=== PATIENT | male | born 1950 | race Caucasian/White ===

== ENCOUNTER 2019-10-18 11:26 | Inpatient (IN) | payer OTHER, MEDICARE ==
[~2019-10-18] VITALS: Ht 180.3 cm; Wt 100.5 kg
[~2019-10-18 11:26] MED LIST: ALBU3IS INH; ASPI325EC PO; Anti-Diarrheal2 MG PO; CARV3.125 PO; CREON DR 12,001 EACH PO; DORZOPSO; FURO20 PO; Flonase 0.05% N16 GM; GABA300 PO; GLIP5 PO; INSULANPEN SC; LATA.005SO BOTHEYES; LISI5 PO; LO-DOSE ASPIRIN81 MG PO; MECL25 PO; METF500 PO; METO25ER PO; METO5A PO; Nitroglycerin0.4 MG SL; OXYC10ER; PRED1SU BOTHEYES; SERT50 PO; SIMBRINZA 1%-0.28 ML BOTHEYES; TIMO.5OPSO BOTHEYES; Vitamin D2000 UNIT PO; ZYRTEC10 M2 PO
[2019-10-18] MEDS ORDERED: BISA5EC (11:44)
[2019-10-18] MEDS ORDERED: ENOX30I SC ×2 (11:46→16:01)
[2019-10-18] MEDS ORDERED: [UNRECOGNIZED DRUG - OTHER] (11:46)
[2019-10-18] MEDS ORDERED: DEXTROSE 50% (11:46)
[2019-10-18] MEDS ORDERED: [UNRECOGNIZED DRUG - OTHER] (11:52)
[2019-10-18] MEDS ORDERED: LACT PO ×2 (11:52→16:04)
[2019-10-18] MEDS ORDERED: MICO100S VAG (11:53)
[2019-10-18] MEDS ORDERED: ACET325 PO (12:41)
[2019-10-18] MEDS ORDERED: Eq Liquid Anta769 ML PO (12:42)
[2019-10-18] MEDS ORDERED: BACLOFEN5 MG PO (12:43)
[2019-10-18] MEDS ORDERED: BRIMONIDINE TART5 ML BOTHEYES (12:45)
[2019-10-18] MEDS ORDERED: Calcium Acetat667 MG PO (12:47)
[2019-10-18] MEDS ORDERED: CARV3.125 PO (12:47)
[2019-10-18] MEDS ORDERED: DOCU100 PO (12:50)
[2019-10-18] MEDS ORDERED: FINA5 PO (12:52)
[2019-10-18] MEDS ORDERED: GABA300 PO (12:53)
[2019-10-18] MEDS ORDERED: BASAGLAR K100 UNIT/1 SC (12:55)
[2019-10-18] MEDS ORDERED: Anti-Diarrheal2 MG PO (12:56)
[2019-10-18] MEDS ORDERED: MELA3 PO (12:57)
[2019-10-18] MEDS ORDERED: ONDA4 PO (12:59)
[2019-10-18] MEDS ORDERED: BETIMOL5 ML BOTHEYES (13:01)
[2019-10-18] MEDS ORDERED: TORSE20 PO (13:01)
[2019-10-18] MEDS ORDERED: MIRALAX17 GM PO (13:05)
[2019-10-18] MEDS ORDERED: SENNA LAXATIVE8.6 MG PO (13:06)
[2019-10-18 13:08] LABS: U Cannabinoids Screen DETECTED
[2019-10-18 13:09] LABS: U Amphetamine Screen Not Detected; U Barbituate Screen Not Detected; U Benzodiazapine Screen Not Detected; U Buprenorphine Screen Not Detected; U Cocaine Screen Not Detected; U Methadone Screen Not Detected; U Methamphetamine Screen Not Detected; U Opiates Screen Not Detected; U Oxycodone Screen Not Detected; U Propoxyphene Screen Not Detected
[2019-10-18 13:37] LABS: PCO2 Arterial 43.2 mmHg (35-45); PO2 Arterial 70.4 mmHg (80-100); pH Blood Arterial 7.39 (7.35-7.45)
--- NOTE | 2019-10-18 14:50 | NUR ---
ASSUMED CARE: PT ARRIVED FROM ED TO PCU 8. HE IS LETHARGIC, MUMBLES AND GROANS. KNOWS NAME AND DATE OF BUT NOT ORIENTED TO SURROUNDINGS. TAB ALARM ON DUE TO PT CONTINUING TO THROW LEGS OVER THE SIDE OF BED. PT UNABLE TO PROVIDE INFORMATION, TOO LETHARGIC AND CONFUSED TO CARRY ON CONVERSATION.
[2019-10-18] MEDS ORDERED: ANTI-FUNGAL POW71 GM TOP (16:08)
[2019-10-18] MEDS ORDERED: BISA5EC PO (16:11)
--- NOTE | 2019-10-18 18:49 | NUR ---
SHIFT SUMMARY: PT CONTINUES TO BE CONFUSED AND ATTEMPTING TO DISROBE. CAMERA IN PLACE TO ASSIST WITH MONITORING CONFUSED PT. CAMERA CALLED AND NURSE ENTERED TO FIND PT ATTEMPTING TO PULL OFF TELE AND GOWN. THEN HE COMPLAINED OF NEEDING TO GO TO THE BATHROOM. BLADDER SCAN REVEALED OVER 900. CALL TO DR MULLER FOR KILLIAN ORDERS WELL RESTRAINTS DUE TO CONFUSION AND ATTEMPTING TO PULL AT LINES NEEDED FOR TREATMENT. PT'S GROIN NOTED TO BE VERY RED AND PAINFUL. NYSTATIN POWDER APPLIED. BILATERAL WRIST RESTRAINTS IN PLACE AT THIS TIME. D5 NS IN PLACE DUE TO LOW CBGS AND TOO CONFUSED TO EAT. PT'S FRIEND NORM CALLED TO CHECK IN AND WAS GIVEN UPDATE ABLE.
--- NOTE | 2019-10-18 19:25 | NUR ---
ASSUMED CARE PATIENT AWAKE, LYING IN BED, MUMBLING INCOHERENTLY WITH FEW WORDS AUDIBLE, PULLING LIGHTLY AT SOFT WRIST RESTRAINTS. PERFUSION TO FINGERS IS INTACT, CAP REFILL <3 SEC, NO REDNESS NO BLEEDING AT RESTRAINT SITES. ALL VSS, O2 SATURATION AT 94% ON ROOM AIR. PATIENT ORIENTED MAINLY ONLY TO SELF, AND BRIEFLY TO LOCATION AFTER RE-ORIENTATION, BUT DOES NOT FOCUS VISION ON OBJECTS. PATIENT SAYS "OW" AND IS ABLE TO COMMUNICATE THAT HE FEELS PAIN HIS PENIS. STATLOCK TO CATHETER REMOVED AND REPLACED TO ALLOW MORE SLACK. TUBING NEEDS TO BE STRAPPED TO MID AND LOWER LEG TO PREVENT PATIENT FROM PULLING ON IT. WILL TREAT AND MEDICATE PER EMAR AND UNIT PROTOCOL. BED LOCKEED AND LOW, CALL LIGHT IN REACH, BED ALARM ARMED.
--- NOTE | 2019-10-18 23:50 | NUR ---
PAIN MEDICATION WITH POSITIONING UPRIGHT IN BED AND REPEATED PROMPTING, PATIENT WAS ABLE TO TAKE ORAL MEDICATION WITH SIPS OF WATER WITH MUCH CARE AND PROMPTING WITH NO SIGN OF GAG OR CHOKE. AFTER MEDICATION W/ TYLENOL PATIENT WAS ABLE TO COMMUNICATE THAT HE DID NOT FEEL "MUCH RELIEF". HOSPITALIST WAS CALLED TO OBTAIN STRONGER PAIN MEDICATION; NO ORDER GIVEN, SO NOT TO FURTHER CLOUD PATIENT'S SENSORIUM. WILL CONTINUE TO MONITOR AND PROVIDE CARE. BED ALARM ON, WRIST RESTRAINTS IN PLACE, CALL LIGHT IN REACH.
[2019-10-19 04:23] LABS: BASOPHILS ABSOLUTE AUTO 0.06 K/mm3 (0.00-0.23); BASOPHILS PERCENT AUTO 1 % (0-2); EOSINOPHILS ABSOLUTE AUTO 0.19 K/mm3 (0.00-0.68); EOSINOPHILS PERCENT AUTO 4 % (0-6); Hemoglobin 10.5 g/dL (13.5-17.5); IMMATURE GRAN ABSOLUTE AUTO 0.01 K/mm3 (0.00-0.10); IMMATURE GRAN PERCENT AUTO 0 % (0-1); LYMPHOCYTES ABSOLUTE AUTO 0.99 K/mm3 (0.84-5.20); LYMPHOCYTES PERCENT AUTO 20 % (21-46); MONOCYTES ABSOLUTE AUTO 0.63 K/mm3 (0.16-1.47); MONOCYTES PERCENT AUTO 13 % (4-13); Mean Corpuscular HGB 31.5 pg (26.0-34.0); Mean Corpuscular HGB Conc 31.8 g/dL (31.5-36.5); Mean Corpuscular Volume 99 fL (80-100); Mean Platelet Volume 12.6 fL (9.1-12.4); NEUTROPHILS ABSOLUTE AUTO 3.05 K/mm3 (1.96-9.15); NEUTROPHILS PERCENT AUTO 62 % (41-73); Platelet Count 165 K/mm3 (150-400); RDW Coefficient Variation 13.2 % (11.7-14.2); RDW Standard Deviation 46.9 fL (35.1-46.3); Red Blood Cell Count 3.33 M/mm3 (4.30-5.90); White Blood Cell Count 4.93 K/mm3 (4.00-11.30)
[2019-10-19 04:42] LABS: Albumin, Blood 2.2 g/dL (3.4-5.0); Albumin/Globulin Ratio 0.5 (0.8-1.8); Bilirubin, Total 0.4 mg/dL (0.1-1.0); Bun/Creatinine Ratio 25.5 (12.0-20.0); Calcium, Blood 8.4 mg/dL (8.5-10.1); Creatinine, Blood 3.3 mg/dL (0.60-1.20); Globulin, Blood 4.6 g/dL (2.2-4.0); Magnesium, Blood 2.1 mg/dL (1.6-2.4); Total Protein, Blood 6.8 g/dL (6.4-8.2)
--- NOTE | 2019-10-19 07:31 | NUR ---
ASSUMED PATIENT CARE.
--- NOTE | 2019-10-19 08:10 | NUR ---
SHIFT SUMMARY NO SIGNIFICANT CHANGES FROM INITIAL NOTE. NONVIOLENT WRIST RESTRAINTS REMAINED IN PLACE, WITH NO REDNESS OR BLEEDING TO WRISTS T/O. VSS. PATIENT REPOSITIONED Q2H PER ORDER AND PROTOCOL. PATIENT STILL CONFUSED, PHYSICALLY AGITATED, WITGH NONSENSICAL SPEECH WHEN AWAKE, AND ABOUT 6 HOURS TOTAL OF SLEEP. PATIENT SAFETY MAINTAINED THROUGHOUT. CARE AND REPORT GIVEN TO ONCOMING SHIFT AT 0700, PATIENT AWAKE LYING IN BED, MUMBLING, CALL LIGHT IN REACH, BED LOCKED AND LOW, BED ALARM ARMED.
--- NOTE | 2019-10-19 14:17 | NUR ---
Echocardiogram performed.
--- NOTE | 2019-10-19 19:17 | NUR ---
PATIENT CARE RELINQUISHED.
--- NOTE | 2019-10-19 19:25 | NUR ---
PATIENT REMAINS CONFUSED, BUT ORIENTED TO SELF AT TIMES. BY THE END OF THE SHIFT PATIENT STARTED CONVERSING WITH STAFF MORE AND CALLING OUT FROM ROOM BUT REMAINS CONFUSED AND NOT ORIENTED TO SITUATION OR TIME. BILATERAL WRIST RESTRAINTS, PULLS AT THE KILLIAN CATH IN PLACE, DIURESING WELL. NEPHROLOGY CONSULTING.
--- NOTE | 2019-10-19 20:42 | NUR ---
PT RESTING IN BED. CONFUSED. WILL REPEAT THE SAME SENTENCE OVER AND OVER. WILL RESPOND TO NAME WHEN IT IS SAID, BUT WHEN ASKED TO STATE HIS NAME HE STATES "YULIA NEWBY". CANNOT ANSWER ANY ORIENTATION QUESTIONS. MOVES ALL EXTREMITIES WELL. PT IS IN BILAT SOFT WRIST RESTRAINTS SO HE DOES NOT PULL LINES AND KILLIAN OUT. WHEN HANDS ARE RELEASED FROM RESTRAINTS HE QUICKLY REACHES FOR LINES. PT HAS FLAKEY SCALING SKIN TO BLE. WRAPPED WITH KERLEX. BED ALARM ON AND CAMERAS ON FOR SAFETY.
[2019-10-20 04:42] LABS: Albumin, Blood 2.2 g/dL (3.4-5.0); Anion Gap 10 mmol/L (6-16); Blood Urea Nitrogen 76 mg/dL (8-24); Bun/Creatinine Ratio 23.9 (12.0-20.0); CO2, Blood 24 mmol/L (21-32); CPK Creatine Kinase 218 U/L (39-308); Calcium, Blood 8.6 mg/dL (8.5-10.1); Chloride, Blood 112 mmol/L (98-108); Creatinine, Blood 3.18 mg/dL (0.60-1.20); Glomerular Filtration Rate 21 (60-); Glucose, Blood 117 mg/dL (70-99); Phosphorus, Blood 5.6 mg/dL (2.5-4.9); Potassium, Blood 3.9 mmol/L (3.5-5.5); Sodium, Blood 146 mmol/L (136-145)
--- NOTE | 2019-10-20 06:16 | NUR ---
SUMMARY PT RESTING IN BED. MENTAL STATUS HAS IMPROVED. PT IS ORIENTED TO SELF, PLACE, AND PRESIDENT. STILL REPEATS SENTENCES OVER AND OVER. PT IS MOVING HIMSELF IN BED MORE NOW EVEN WITH BILAT WRIST RESTRAINTS. NO OTHER CHANGES.
--- NOTE | 2019-10-20 07:25 | NUR ---
ASSUMED CARE: PT RESTING IN BED, AWAKE, TALKING TO STAFF. STATES HE IS IN THE HOSPITAL, THAT IT'S OCTOBER 2019 AND YULIA NEWBY IS THE PRESIDENT. STILL REPEATS AND FIXATES ON IDEAS BUT STATES HE FEELS BETTER. BILATERAL WRIST RESTRAINTS IN PLACE. WILL TRIAL FOR REMOVAL
[2019-10-20 12:05] LABS: Antinuclear Antibody Screen Positive (Negative)
--- NOTE | 2019-10-20 16:01 | NUR ---
Spiritual care visit conducted. Patient is very talkative and wants to tells about his ideas on tenriism, the [place] war and health care. Patient gets emotional talking about friends he has lost. I listen empathically and provide companionship and a calming presence. I leave abrupting for a rapid response.
[2019-10-20 17:51] LABS: Bilirubin, Urine Neg (Neg); Blood, Urine 4+ (Neg); Glucose Qualitative, Urine 4+ (Neg); Ketones, Urine 3+ (Neg); Leukocyte Esterase, Urine Neg (Neg); Nitrite, Urine Neg (Neg); Protein, Urine 4+ (Neg); Specific Gravity, Urine 1.015 (1.003-1.022); Urobilinogen, Urine NORM (Normal)
--- NOTE | 2019-10-20 18:01 | NUR ---
SHIFT SUMMARY: PT SITTING UPRIGHT IN CHAIR WITH CHAIR ALARM ON. HAS BEEN OUT OF RESTRAINTS SINCE 0745 THIS AM. FRIEND CAME TO VISIT DURING THIS SHIFT. PT HAS BEEN MORE ALERT AND ORIENTED TODAY, ABLE TO TOLERATE ORAL INTAKE WELL. PLAN FOR DC IN NEXT FEW DAYS.
[2019-10-20 18:14] LABS: Appearance, Urine Clear (Clear); Color, Urine Yellow (P-Yellow)
[2019-10-20 18:16] LABS: Squamous Epithelial Cells Rare /hpf (Few); White Blood Cells, Urine Not Seen /hpf (0-5)
[2019-10-20 18:18] LABS: Bacteria Few /hpf
[2019-10-20 18:19] LABS: Hyaline Casts 0-2 /lpf (0-2)
[2019-10-20 18:23] LABS: Creatinine, Urine Random 47.6 mg/dL (27.00-270.00)
[2019-10-20 18:27] LABS: Protein, Urine Random 911.1 mg/dL (0.0-11.9)
[2019-10-21 04:13] LABS: BASOPHILS ABSOLUTE AUTO 0.05 K/mm3 (0.00-0.23); BASOPHILS PERCENT AUTO 1 % (0-2); EOSINOPHILS ABSOLUTE AUTO 0.18 K/mm3 (0.00-0.68); EOSINOPHILS PERCENT AUTO 3 % (0-6); Hematocrit 34.4 % (37.0-53.0); Hemoglobin 11.2 g/dL (13.5-17.5); IMMATURE GRAN ABSOLUTE AUTO 0.01 K/mm3 (0.00-0.10); IMMATURE GRAN PERCENT AUTO 0 % (0-1); LYMPHOCYTES ABSOLUTE AUTO 1.02 K/mm3 (0.84-5.20); LYMPHOCYTES PERCENT AUTO 19 % (21-46); MONOCYTES ABSOLUTE AUTO 0.74 K/mm3 (0.16-1.47); MONOCYTES PERCENT AUTO 14 % (4-13); Mean Corpuscular HGB 31.4 pg (26.0-34.0); Mean Corpuscular HGB Conc 32.6 g/dL (31.5-36.5); Mean Corpuscular Volume 96 fL (80-100); Mean Platelet Volume 12.1 fL (9.1-12.4); NEUTROPHILS ABSOLUTE AUTO 3.25 K/mm3 (1.96-9.15); NEUTROPHILS PERCENT AUTO 62 % (41-73); Platelet Count 161 K/mm3 (150-400); RDW Standard Deviation 45.8 fL (35.1-46.3); Red Blood Cell Count 3.57 M/mm3 (4.30-5.90); White Blood Cell Count 5.25 K/mm3 (4.00-11.30)
[2019-10-21 04:33] LABS: Bun/Creatinine Ratio 23.6 (12.0-20.0); Creatinine, Blood 3.18 mg/dL (0.60-1.20); Potassium, Blood 3.8 mmol/L (3.5-5.5)
--- NOTE | 2019-10-21 05:21 | NUR ---
SHIFT SUMMARY PT SLEEPING IN ROOM COMFORTABLY AT THIS TIME. NO ACUTE CHANGES IN STATUS T/O NIGHT. PT DID NOT SLEEP WELL, WAS AWAKE IN ROOM IN CHAIR AT BEDSIDE UNTIL AFTER 0200. PT FINALLY AGREED TO GET INTO BED AND ATTEMPT TO SLEEP AT 0245. RESP EVEN UNLABORE ON RA W/ SATS >92%. PT HAS KILLIAN CATH IN PLACE AND 24HOUR URINE TEST. PT MORE ORIENTED TONIGHT. STILL HAS MOMENTS OF CONFUSION AND IMPULSE CONTROL. PT DID USE CALL LIGHT WELL T/O NIGHT. CHAIR AND BED ALARM IN USE. PT IS VERY HARD OF HEARING AND REPORTS NEARLY BLIND. CALL LIGHT IS WITHIN REACH. WILL GIVE BEDSIDE REPORT TO ONCOMING RN.
[2019-10-21 13:07] LABS: A/G RATIO 0.6 (0.7-1.7); ALBUMIN 2.4 g/dL (2.9-4.4); ALPHA-1-GLOBULIN 0.3 g/dL (0.0-0.4); ALPHA-2-GLOBULIN 0.9 g/dL (0.4-1.0); BETA GLOBULIN 1.1 g/dL (0.7-1.3); GAMMA GLOBULIN 1.4 g/dL (0.4-1.8); GLOBULIN, TOTAL 3.8 g/dL (2.2-3.9); M-SPIKE Not Observed g/dL (Not Observed); PROTEIN, TOTAL, SERUM 6.2 g/dL (6.0-8.5)
--- NOTE | 2019-10-21 19:54 | NUR ---
SHIFT SUMMARY PT A&Ox3, FORGETFUL. MANZANITA. PT STATES HE HAS TROUBLE SEEING. PT UP IN CHAIR FOR MAJORITY OF SHIFT, 1 PERSON ASSIST TO BATHROOM WITH VERBAL AND TACTILE QUEUES. PT DENIES PAIN, CHEST PAIN/PRESSURE, SOB, LIGHTHEADED/ DIZZINESS AND NASUEA T/O SHIFT. SP02 >90% ON RA. PT RECEIVING IV LASIX. KILLIAN PATENT AND DRAINING; IN PROCESS OF 24 HR URINE COLLECTION; PLANS TO DISCONTINUE ONCE COLLECTION COMPLETED. SWELLING TO BLE DECREASED; PURPLE FROM MIDLINE JEFFERS DOWN WITH OPEN WOUND SCATTERED; DR RANGEL TO BEDSIDE; NEW ORDERS FOR UNNABOOT FOR BLE. VSS. NO OTHER ACUTE CHANGES NOTED DURING SHIFT. REPORT GIVEN TO ONCOMING RN.
[2019-10-22 01:46] LABS: Protein, Urine Quantitative 856.9 mg/dL (0.0-11.9)
[2019-10-22 04:03] LABS: Hematocrit 35.4 % (37.0-53.0); Hemoglobin 11.4 g/dL (13.5-17.5)
[2019-10-22 04:23] LABS: Albumin, Blood 2.1 g/dL (3.4-5.0); Anion Gap 6 mmol/L (6-16); Blood Urea Nitrogen 77 mg/dL (8-24); Bun/Creatinine Ratio 24.9 (12.0-20.0); CO2, Blood 26 mmol/L (21-32); Calcium, Blood 8.2 mg/dL (8.5-10.1); Chloride, Blood 108 mmol/L (98-108); Creatinine, Blood 3.09 mg/dL (0.60-1.20); Glomerular Filtration Rate 21 (60-); Glucose, Blood 177 mg/dL (70-99); Phosphorus, Blood 5.2 mg/dL (2.5-4.9); Sodium, Blood 140 mmol/L (136-145)
--- NOTE | 2019-10-22 05:03 | NUR ---
SHIFT SUMMARY PT ALERT AND ORIENTED TO SELF; COMPLIANT BUT ANXIOUS OF CARE AT TIMES; BECOMES FIXATED AND INCESSANT AT TIMES; 24HR URINE COMPLETED AND KILLIAN DC'D PER ORDERS; KARO CARE PERFORMED; PT EDUCATED ON HYGIENE WHEN HE GOES HOME; KARO AREA RED & TENDER; O2 SATS >93 ON RA; DENIES CHEST PAIN; CALL LIGHT IN REACH; BED IN LOWEST POSITION; BED ALARM ON; WILL MONITOR CLOSELY UNTIL HAND OFF TO DAY SHIFT RN.
[2019-10-22 05:09] LABS: COMPLEMENT C3, SERUM 113 mg/dL (82-167); COMPLEMENT C4, SERUM 21 mg/dL (14-44)
--- NOTE | 2019-10-22 05:26 | NUR ---
UPDATE PT HAD A FEW BEAT RUN OF VTACH; ASSYMPTOMATIC; VSS; PT STATES HE DID NOT NOTICE
[2019-10-22 11:58] LABS: ANA Pattern Homogenous
[2019-10-22 13:07] LABS: ANTI-DSDNA ANTIBODIES 4 IU/mL (0-9); RNP ANTIBODIES <0.2 AI (0.0-0.9); SJOGREN'S ANTI-SS-A <0.2 AI (0.0-0.9); SJOGREN'S ANTI-SS-B <0.2 AI (0.0-0.9); SMITH ANTIBODIES <0.2 AI (0.0-0.9)
--- NOTE | 2019-10-22 17:50 | NUR ---
DISCHARGE SUMMARY PT A&Ox3; FORGETFUL AT TIMES. OHKAY OWINGEH. PT REPORTS BLIND IN BOTH EYES. PT UP TO SIDE OF BED FOR MEALS; RESTING IN BED; UP WITH 1 PERSON ASSIST TO BATHROOM WITH GB AND WALKER. PT DENIES PAIN; CHEST PAIN/PRESSURE; SOB; NAUSEA; OR LIGHTHEADED/DIZZINESS. SPO2 >90% ON RA. KILLIAN TAKEN OUT ON NOC SHIFT; PT UP TO BATHROOM AND VOID PRIOR TO DISCHARGE. VSS. PATIENT AND FRIEND EDUCATED AT BEDSIDE REGARDING DISCHARGE INSTRUCTIONS, MEDICATIONS AND FOLLOW UP APPOINTMENTS AND LAB. DAUGHTER, ADRIANO, WAS EDUCATED BY PHONE. NO NEW PRESCRIPTIONS. PT LEFT ROOM VIA WHEELCHAIR AT 1145; PT STABLE UPON DISHCHARGE. PT HAS HOME HEALTH SET UP ALREADY.
[2019-10-23 07:58] LABS: ANTIGLOMERULAR BM AB 3 units (0-20)
[2019-10-23 15:07] LABS: ANA DIRECT Negative (Negative); ANTIMYELOPEROXIDASE (MPO) ABS <9.0 U/mL (0.0-9.0); ANTIPROTEINASE 3 (PR-3) ABS <3.5 U/mL (0.0-3.5); ATYPICAL PANCA <1:20 titer (Neg:<1:20); CYTOPLASMIC (C-ANCA) <1:20 titer (Neg:<1:20); PERINUCLEAR (P-ANCA) <1:20 titer (Neg:<1:20)
[2019-10-24 15:07] LABS: ANA DIRECT Negative (Negative); ANTIMYELOPEROXIDASE (MPO) ABS <9.0 U/mL (0.0-9.0); ANTIPROTEINASE 3 (PR-3) ABS <3.5 U/mL (0.0-3.5); ATYPICAL PANCA <1:20 titer (Neg:<1:20); CYTOPLASMIC (C-ANCA) <1:20 titer (Neg:<1:20); PERINUCLEAR (P-ANCA) <1:20 titer (Neg:<1:20)
== END 2019-10-22 11:45 | disposition home health service (06) | DRG 91 ==
LOC: ER 11:26 → PCU 13:24
PROVIDERS: Internal Medicine; Nurse Practitioner Acute Care; ADMIT Internal Medicine
DX: G92 Toxic encephalopathy (principal); I50.23 Acute on chronic systolic (congestive) heart failure; N17.9 Acute kidney failure, unspecified; K86.1 Other chronic pancreatitis; I13.0 Hypertensive heart and chronic kidney disease with heart failure and stage 1 through stage 4 chronic kidney disease, or unspecified chronic kidney disease; E11.22 Type 2 diabetes mellitus with diabetic chronic kidney disease; I25.10 Atherosclerotic heart disease of native coronary artery without angina pectoris; F43.10 Post-traumatic stress disorder, unspecified; Z79.4 Long term (current) use of insulin; E11.21 Type 2 diabetes mellitus with diabetic nephropathy; E78.5 Hyperlipidemia, unspecified; Z87.891 Personal history of nicotine dependence; N18.3 Chronic kidney disease, stage 3 (moderate); I89.0 Lymphedema, not elsewhere classified; T42.6X5A Adverse effect of other antiepileptic and sedative-hypnotic drugs, initial encounter; T42.8X5A Adverse effect of antiparkinsonism drugs and other central muscle-tone depressants, initial encounter; Y92.9 Unspecified place or not applicable
CPT/HCPCS: 36415; 36600; 51703; 70450; 71046; 76770; 80048; 80053; 80069; 81001; 81050; 82140; 82306; 82330; 82550; 82570; 82803; 82947; 83520; 83735; 84156; 84165; 84443; 84484; 85014; 85018; 85025; 86038; 86039; 86160; 86225; 86235; 86256; 87081; 93005; 93010; 93306; 96374; 96375; 97110; 97163; 97166; 97530; 97535; 99285-25; A9270; J1644; J1940; J2310; J7042

== ENCOUNTER 2019-11-12 19:42 | Inpatient (IN) | payer OTHER, MEDICARE ==
[~2019-11-12] VITALS: Ht 182.9 cm; Wt 102.4 kg
[~2019-11-12 19:42] MED LIST changes: +ACET325 PO; +ANTI-FUNGAL POW71 GM TOP; +BACLOFEN5 MG PO; +BASAGLAR K100 UNIT/1 SC; +BETIMOL5 ML BOTHEYES; +BISA5EC; +BISA5EC PO; +BRIMONIDINE TART5 ML BOTHEYES; +Calcium Acetat667 MG PO; +DEXTROSE 50%; +DOCU100 PO; +ENOX30I SC; +Eq Liquid Anta769 ML PO; +FINA5 PO; +LACT PO; +MELA3 PO; +MICO100S VAG; +MIRALAX17 GM PO; +ONDA4 PO; +SENNA LAXATIVE8.6 MG PO; +TORSE20 PO; +[UNRECOGNIZED DRUG - OTHER]; +[UNRECOGNIZED DRUG - OTHER]
[2019-11-12 20:38] LABS: Hematocrit 34.9 % (37.0-53.0); Hemoglobin 11.3 g/dL (13.5-17.5); Mean Corpuscular HGB 31.9 pg (26.0-34.0); Mean Corpuscular HGB Conc 32.4 g/dL (31.5-36.5); Mean Corpuscular Volume 99 fL (80-100); Platelet Count 111 K/mm3 (150-400); RDW Coefficient Variation 13.7 % (11.7-14.2); RDW Standard Deviation 49.5 fL (35.1-46.3); Red Blood Cell Count 3.54 M/mm3 (4.30-5.90); White Blood Cell Count 5.57 K/mm3 (4.00-11.30)
[2019-11-12 20:46] LABS: Mean Platelet Volume 13.8 fL (9.1-12.4)
[2019-11-12 20:56] LABS: Albumin, Blood 1.9 g/dL (3.4-5.0); Albumin/Globulin Ratio 0.4 (0.8-1.8); Bilirubin, Total 0.3 mg/dL (0.1-1.0); Bun/Creatinine Ratio 25.5 (12.0-20.0); Calcium, Blood 7.5 mg/dL (8.5-10.1); Creatinine, Blood 3.18 mg/dL (0.60-1.20); Globulin, Blood 4.5 g/dL (2.2-4.0); Potassium, Blood 4.8 mmol/L (3.5-5.5); Total Protein, Blood 6.4 g/dL (6.4-8.2)
[2019-11-13 02:08] LABS: Total Protein, Blood 6.4 g/dL (6.4-8.2)
--- NOTE | 2019-11-13 03:22 | NUR ---
0250 REPORT RECEIVED FROM GIBRAN RUBI IN ER; PT ARRIVED TO ROOM VIA CART; PT SLIDE INTO BED VIA SLIDER SHEET X 5 ASSIST; PTS BILATERAL LOWER EXTREMITIES HAVE MULTIPLE OPENS WOUNDS WITH THICK DRY SCALLY SKIN NOTED (PHOTOS TAKEN AND PERMIT SIGNED BY PATIENT); BILATERAL GROIN REDDENED AND EXCORIATED; ATTENDS DIAPERS APPLIED; PT BED ALARM APPLIED; PT NOTED TO HAVE POOR VISION AND UNABLE TO SEE OBJECTS UP CLOSE; PT REQUIRED THIS NURSE TO FEED HIM CUP OF JELLO.
--- NOTE | 2019-11-13 05:27 | NUR ---
SHIFT SUMMARY: 69 Y/O OBESE MALE HAD RESTLESS NIGHT AFTER LATE ADMISSION TO FLOOR; PT HAS VERY POOR VISION AND HAS MUCH DIFFICULTY COMING TO STANDING POSITION, PIVOTING/TRANSFER TO BSC VIA WALKER AND ONE STANDBY ASSIST; PT HAS VERY STRONG BODY ODOR NOTED WITH EXTREMELY POOR HYGIENE NOTED; BILATERAL LOWER EXTREMITIES HAVE LARGE AMOUNT THICK SCALLY SKIN WITH OPEN SORES (+4 PITTING EDEMA), SEE PHOTOS; DENIES PAIN OR NAUSEA; PT POOR HISTORIAN ALL MEDS NEED TO BE VERIFIED; BED ALARM APPLIED, BED LOW POSITION WITH CALL LIGHT AT SIDE.
[2019-11-13 05:31] LABS: BASOPHILS ABSOLUTE AUTO 0.05 K/mm3 (0.00-0.23); BASOPHILS PERCENT AUTO 1 % (0-2); EOSINOPHILS ABSOLUTE AUTO 0.11 K/mm3 (0.00-0.68); EOSINOPHILS PERCENT AUTO 1 % (0-6); Hematocrit 35.3 % (37.0-53.0); Hemoglobin 11.4 g/dL (13.5-17.5); IMMATURE GRAN ABSOLUTE AUTO 0.02 K/mm3 (0.00-0.10); IMMATURE GRAN PERCENT AUTO 0 % (0-1); LYMPHOCYTES ABSOLUTE AUTO 0.45 K/mm3 (0.84-5.20); LYMPHOCYTES PERCENT AUTO 5 % (21-46); MONOCYTES ABSOLUTE AUTO 0.77 K/mm3 (0.16-1.47); MONOCYTES PERCENT AUTO 9 % (4-13); Mean Corpuscular HGB 31.8 pg (26.0-34.0); Mean Corpuscular HGB Conc 32.3 g/dL (31.5-36.5); Mean Corpuscular Volume 98 fL (80-100); NEUTROPHILS ABSOLUTE AUTO 6.88 K/mm3 (1.96-9.15); NEUTROPHILS PERCENT AUTO 83 % (41-73); Platelet Count 131 K/mm3 (150-400); RDW Coefficient Variation 13.5 % (11.7-14.2); RDW Standard Deviation 48.5 fL (35.1-46.3); Red Blood Cell Count 3.59 M/mm3 (4.30-5.90); White Blood Cell Count 8.28 K/mm3 (4.00-11.30)
[2019-11-13 05:33] LABS: Mean Platelet Volume 13.4 fL (9.1-12.4)
[2019-11-13 05:48] LABS: Bun/Creatinine Ratio 24.7 (12.0-20.0); Calcium, Blood 7.9 mg/dL (8.5-10.1); Creatinine, Blood 3.08 mg/dL (0.60-1.20); Potassium, Blood 4.3 mmol/L (3.5-5.5)
[2019-11-13 10:45] LABS: International Normalized Ratio 1.08; Prothrombin Time Results 11.5 Sec (9.7-11.5)
[2019-11-13 15:21] LABS: Body Fluid WBC Count 110 /mm3 (0-999)
[2019-11-13 15:26] LABS: Albumin, Body Fluid 0.6 g/dL; Glucose, Body Fluid 315 mg/dL; Lactate Dehydrogenase, Body Fl 41 U/L; Protein, Body Fluid 1.4 g/dL
[2019-11-13 16:19] LABS: RBC Count, Body Fluid 67 /mm3 (0-0)
[2019-11-13 16:26] LABS: Color, Body Fluid L Yellow (None-Yellow); Total Cell Count, Body Fluid 100
[2019-11-13 16:27] LABS: Appearance, Body Fluid Hazy (Clear)
--- NOTE | 2019-11-13 20:18 | NUR ---
SHIFT SUMMARY THE PATIENT IS NOT VERY RECEPTIOVE TO MUCH HELP OR CARE. HE IS HIT AND MISS WITH WHETHER OR NOT HE WILL TAKE HIS MEDICATIONS AND SLEEPS A GOOD MAJORITY OF THE DAY SITTING UP, HUNCHED OVER FORWARD. BLE WITH MANY WOUNDS AND WEEPING, CHANGES THE DRESSING TWICE TODAY DUE TO THE SATURATION OF THE WEEPING THROUGH THE DRESSING. GROIN FIRE-ENGINE RED. ASSISTED THE MEDICARE SALES EXECUTIVE IN GIVING THE PATIENT A SPONGE BATH AND THEN APPLIED NYSTATIN TO THE GROIN AREA. PATIENT IS ALERT AND ORIENTED BUT CONFUSED AND FORGETFUL AT THE SAME TIME AND WANTS NOTHING MORE THAN TO GO HOME, DOES HIS DAUGHTER, HOWEVER THE PATIENT LIVES ALONE AND IS NOT ABLE TO CARE FOR HIMSELF. HE IS VISUALLY IMPAIRED AND VERY [place]. REPORT GIVEN TO THE EVENT HOST RN WHO HAS ASSUMED PATIENT CARE.
--- NOTE | 2019-11-13 20:41 | NUR ---
2024 PT CBG 56; INSULIN HELD; PT DRANK WHITE WHOLE MILK 120 ML AND ENSURE PLUS 120 ML WITH THIS NURSE PRESENT; ALERT AND FOLLOWING SIMPLE VERBAL COMMANDS; CHEERFUL; PLAN TO RECHECK CBG IN 1 HOUR; NAVA LOVE RN, CHARGE NURSE NOTIFIED.
--- NOTE | 2019-11-14 04:47 | NUR ---
SHIFT SUMMARY: 69 Y/O OBESE MALE RESTED IN BEDSIDE CHAIR ALL SHIFT; PT REFUSED TO LAY IN BED; PT ALERT AND ORIENTED X 2; PT REQUIRES 100% ASSISTANCE WITH ALL ADLS/IADLS FROM NURSING STAFF TO INCLUDE THE FOLLOWING: HOLDING AND DRINKING WATER FROM A CUP, REQUIRED TO BE FED ALL SNACKS PATIENT HAS VERY POOR VISION DEPTH PERCEPTION AND IS UNABLE TO VISUALIZE OBJECTS OF CLOSE (HE IS ABLE TO ONLY MAKE OUT LARGE OBJECTS); PT TAKES NO RESPONSIBILITY FOR ANY OF HIS ACTIONS AND WANTS TO BLAME OTHERS FOR HIS CURRENT STATE OF HEALTH TO INCLUDE WOUNDS; PTS BILATERAL LOWER EXTREMITIES DRESSINGS WERE CHANGED BY THIS NURSE (ABD, KERLIX AND COBAN WRAPS APPLIED); PT DENIES PAIN; PT WAS GIVEN BENADRYL 25MG PO FOR ITCHING; PT STATED, "I WILL BE LEAVING HERE TODAY AND RETURNING HOME EVEN THOUGH I HAVE NO IDEA HOW TO MANAGE THINGS AT HOME"; PT VERY POOR HISTORIAN WITH POOR RECENT MEMORY; PT IS DECONDITIONED AND THIS NURSE BELIEVES PATIENT REQUIRES POSSIBLE LTC PLACEMENT OR HOME HEALTH CARE REFERRAL PRIOR TO DISCHARGE. PT UNABLE TO MAKE ANY GOOD DECISIONS AT THIS TIME REGARDING CARE REQUIRED AT HOME. PT IS UNABLE TO AMBULATE EXCEPT TO STAND/PIVOT AND SIT WHILE NURSING STAFF IS CLEANSING UP KARO AREA WHICH IS RED AND EXCORIATED FROM POOR HYGIENE AND URINARY INCONTINENCE; PT CALL LIGHT AT SIDE. THIS NURSE ADVISED NAVA LOVE RN, CHARGE NURSE AND TEENA PINK RN, CLINICAL CLINICAL LAW PROFESSOR ABOUT ALL THE ABOVE CONCERNS.
[2019-11-14 06:12] LABS: BASOPHILS ABSOLUTE AUTO 0.03 K/mm3 (0.00-0.23); BASOPHILS PERCENT AUTO 1 % (0-2); EOSINOPHILS ABSOLUTE AUTO 0.17 K/mm3 (0.00-0.68); EOSINOPHILS PERCENT AUTO 3 % (0-6); Hematocrit 35.8 % (37.0-53.0); Hemoglobin 11.5 g/dL (13.5-17.5); IMMATURE GRAN ABSOLUTE AUTO 0.02 K/mm3 (0.00-0.10); IMMATURE GRAN PERCENT AUTO 0 % (0-1); LYMPHOCYTES ABSOLUTE AUTO 0.48 K/mm3 (0.84-5.20); LYMPHOCYTES PERCENT AUTO 7 % (21-46); MONOCYTES ABSOLUTE AUTO 0.66 K/mm3 (0.16-1.47); MONOCYTES PERCENT AUTO 10 % (4-13); Mean Corpuscular HGB 31.7 pg (26.0-34.0); Mean Corpuscular HGB Conc 32.1 g/dL (31.5-36.5); Mean Corpuscular Volume 99 fL (80-100); NEUTROPHILS PERCENT AUTO 80 % (41-73); Platelet Count 134 K/mm3 (150-400); RDW Coefficient Variation 13.7 % (11.7-14.2); RDW Standard Deviation 49.2 fL (35.1-46.3); Red Blood Cell Count 3.63 M/mm3 (4.30-5.90); White Blood Cell Count 6.66 K/mm3 (4.00-11.30)
[2019-11-14 06:16] LABS: Mean Platelet Volume 13.6 fL (9.1-12.4)
[2019-11-14 06:33] LABS: Bun/Creatinine Ratio 27.5 (12.0-20.0); Creatinine, Blood 2.91 mg/dL (0.60-1.20); Potassium, Blood 4.4 mmol/L (3.5-5.5)
--- NOTE | 2019-11-14 18:52 | NUR ---
PT DID BETTER GETTING UP AND MOVING AROUND TODAY, STILL REQUIRES MUCH ASSISTANCE AND VERBAL CUES. PT WAS VERY INSISTANT THIS AFTERNOON THAT HE WAS GOING HOME TODAY, THIS RN AND OTHERS SPOKE WITH PT AND EXPLAINED THAT DR DID NOT WRITE DISCHARGE ORDERS TODAY, HE WAS NOT READY TO GO HOME YET. PT EVENTUALLY BECAME RESIGNED TO STAYING. LASIX DOSE INCREASED THIS AFTERNOON. NO ACUTE CHANGES NOTED THIS SHIFT WILL CONTINUE TO MONITOR AND REPORT TO ONCOMING RN.
--- NOTE | 2019-11-15 05:13 | NUR ---
SHIFT SUMMARY: VSS. AFEB. A/OX3. COOPERATIVE AND MAKING NEEDS KNOWN. VERY [place]. REMAINED SITTING UP AT THE EDGE OF BED ALL NIGHT. REFUSED OFFERS TO SIT UP IN RECLINER. CONT W/BLE BRAWNY EDEMA. DRESSINGS CHANGED TO BLE. B ANTERIOR SHINS W/ DERMIS EXPOSED DUE TO PT EXCESSIVE SCRATCHING ALONG W/ NEUROPATHY. SOME AREAS OF THICK SCALING TISSUE ON BLE AND SOME AREAS OF BLISTERING AND WHEEPING. PT ONLY REPORTS ITCHING/NUMBNESS/TINGLING TO BLE, DENIES PAIN. POOR CAP REFILL. JORGE DRESSING CHANGE WELL. POST SCROTUM BLEEDING W/ABRASION PRESENT. WHITE YEASTY DISCHARGE PRESENT IN GROIN FOLDS, BUTTOCK FOLDS AND POSTERIOR SCROTUM. SCATTERED SCABS AND SCRATHES ON B UE. PT INSISTS HE WILL BE SPEAKING WITH THE DRYaneth TODAY ABOUT GOING HOME. REQUESTS TYLENOL FOR CHRONIC BACK PAIN. PT REQUIRES 1 MAX ASSIST W/ T/F, NEEDS MANY CUES. BED ALARM AND CHAIR ALARM ON. NO ACUTE CHANGES OVERNIGHT. WILL CONT TO MONITOR.
[2019-11-15 06:05] LABS: BASOPHILS ABSOLUTE AUTO 0.03 K/mm3 (0.00-0.23); BASOPHILS PERCENT AUTO 1 % (0-2); EOSINOPHILS ABSOLUTE AUTO 0.17 K/mm3 (0.00-0.68); EOSINOPHILS PERCENT AUTO 3 % (0-6); Hematocrit 32.9 % (37.0-53.0); Hemoglobin 10.6 g/dL (13.5-17.5); IMMATURE GRAN ABSOLUTE AUTO 0.01 K/mm3 (0.00-0.10); IMMATURE GRAN PERCENT AUTO 0 % (0-1); LYMPHOCYTES ABSOLUTE AUTO 0.39 K/mm3 (0.84-5.20); LYMPHOCYTES PERCENT AUTO 8 % (21-46); MONOCYTES ABSOLUTE AUTO 0.65 K/mm3 (0.16-1.47); MONOCYTES PERCENT AUTO 13 % (4-13); Mean Corpuscular HGB 31.6 pg (26.0-34.0); Mean Corpuscular HGB Conc 32.2 g/dL (31.5-36.5); Mean Corpuscular Volume 98 fL (80-100); NEUTROPHILS ABSOLUTE AUTO 3.93 K/mm3 (1.96-9.15); NEUTROPHILS PERCENT AUTO 76 % (41-73); Platelet Count 121 K/mm3 (150-400); RDW Coefficient Variation 13.7 % (11.7-14.2); Red Blood Cell Count 3.35 M/mm3 (4.30-5.90); White Blood Cell Count 5.18 K/mm3 (4.00-11.30)
[2019-11-15 06:08] LABS: Mean Platelet Volume 13.5 fL (9.1-12.4)
[2019-11-15 06:41] LABS: Albumin, Blood 1.7 g/dL (3.4-5.0); Anion Gap 7 mmol/L (6-16); Blood Urea Nitrogen 84 mg/dL (8-24); Bun/Creatinine Ratio 28.6 (12.0-20.0); CO2, Blood 25 mmol/L (21-32); Calcium, Blood 7.6 mg/dL (8.5-10.1); Chloride, Blood 103 mmol/L (98-108); Creatinine, Blood 2.94 mg/dL (0.60-1.20); Glomerular Filtration Rate 23 (60-); Glucose, Blood 108 mg/dL (70-99); Phosphorus, Blood 5.6 mg/dL (2.5-4.9); Potassium, Blood 4.7 mmol/L (3.5-5.5); Sodium, Blood 135 mmol/L (136-145)
--- NOTE | 2019-11-15 15:46 | NUR ---
DISCHARGE THIS AM PT REPEATEDLY ASKS IF HE CAN GO HOME TODAY, DR WILLS IN TO SEE HIM STATE HE WILL PLACE ORDERS IF OK WITH SHOE PLANNER DR CHUNG. DR CHUNG IN TO SEE PT, OK TO GO HOME TODAY, DR WILLS PLACE ORDERS. WOUND CARE/DRSG CHANGES PROVIDED, PHOTOS TAKEN. IV D/C INTACT. [facility] FAX ORDERS TO [facility] D/C PACK[facility], D/C INSTRUCT REVIEWED w PT. DAUGHTER ADRIANO NOTIFIED OF D/C STATES ANOTHER CAREGIVER WILL BE IN FOR TRANSPORTATION HOME. [facility]ENE[facility] LATHE OPERATORDEEP [facility]. WILL PROVIDE W/C ESCORT FROM HOSP WHEN HIS RIDE GETS HERE. PT IS A/O X4, PLAEASANT/APPRECIATIVE.
[2019-11-16 04:31] LABS: HBSAG SCREEN Negative (Negative); HEP B CORE AB, TOT Negative (Negative); HEP C VIRUS AB 0.3 (0.0-0.9)
== END 2019-11-15 16:28 | disposition home or self-care (01) | DRG 292 ==
LOC: ER 19:42 → MEDS 19:43 → ER 11-13 02:15 → MEDS 11-13 02:32
PROVIDERS: Hospitalist; Internal Medicine; Physician Assistant; ADMIT Family Medicine
PROC: 0W9930Z Drainage of Right Pleural Cavity with Drainage Device, Percutaneous Approach (ICD-10-PCS; principal; 2019-11-13)
DX: I13.0 Hypertensive heart and chronic kidney disease with heart failure and stage 1 through stage 4 chronic kidney disease, or unspecified chronic kidney disease (principal); N18.4 Chronic kidney disease, stage 4 (severe); E11.40 Type 2 diabetes mellitus with diabetic neuropathy, unspecified; I25.10 Atherosclerotic heart disease of native coronary artery without angina pectoris; E78.5 Hyperlipidemia, unspecified; N40.0 Benign prostatic hyperplasia without lower urinary tract symptoms; D69.6 Thrombocytopenia, unspecified; D63.1 Anemia in chronic kidney disease; E11.22 Type 2 diabetes mellitus with diabetic chronic kidney disease; I89.0 Lymphedema, not elsewhere classified; I87.2 Venous insufficiency (chronic) (peripheral); E11.65 Type 2 diabetes mellitus with hyperglycemia; Z79.84 Long term (current) use of oral hypoglycemic drugs
CPT/HCPCS: 32555; 36415; 71045; 71046; 71250; 80048; 80053; 80069; 82042; 82945; 82947; 83615; 83880; 84155; 84157; 85025; 85610; 85730; 87070; 87081; 89051; 93005; 93010; 96372; 96374; 97110; 97162; 97166; 97530; 99285-25; A9270; G0378; J1650; J1815; J1940; Q0163